=== PATIENT | female | born 1985 | race Caucasian/White ===

== ENCOUNTER → 2017-01-27 | Outpatient (CLI) | payer BC ==
[2017-01-27 09:13] LABS: URINE CREATININE 24 HR 1104 mg/24hr (800-2800); URINE TOTAL VOLUME-24 HRS 2350 mL
[2017-01-27 23:00] LABS: CALCIUM URINE MG/DL 5.8 mg/dL
== END ==
LOC: LAB 08:22
PROVIDERS: ATTEND Internal Medicine Endocrinology, Diabetes & Metabolism
DX: E83.39 Other disorders of phosphorus metabolism (principal)
CPT/HCPCS: 36415; 81050; 82310; 82340; 82565; 82570; 83970; 84100; 84105